=== PATIENT | male | born 1990 | race Caucasian/White ===

== ENCOUNTER 2017-12-06 13:14 | Emergency (ER) | payer OTHER ==
[2017-12-06 13:21] VITALS: PULSE 100; TEMP 97.7; BMI 38.4
--- NOTE | 2017-12-06 13:56 | PDOC ---
History of Present Illness - General Chief Complaint: Headache Stated Complaint: HIGH BP, NAUSEA Time Seen by Provider: 12/06/17 13:34 History Source: Patient Exam Limitations: No Limitations - History of Present Illness Initial Comments: 12/06/17 13:41 Patient is a 27-year-old male, morbidly obese, presents with 3 days of headache , photophobia, nausea and last night had chills. Concerned because his blood pressures been elevated, has been taking Advil without resolve of headache. Past Medical History: [Denies]. Allergies: No known allergies Medications: [None] Family History: Non-contributory Social History: Denies smoking, alcohol use, or IVDU Vital signs on arrival are [notable for pulse of 96.] Review of Systems GENERAL/CONSTITUTIONAL: Tactile fever and chills last night. No weakness. No weight change.] HEAD, EYES, EARS, NOSE AND THROAT: [No change in vision. No ear pain or discharge. No sore throat. ] CARDIOVASCULAR: [No chest pain or shortness of breath.] RESPIRATORY: [No cough, wheezing, or hemoptysis.] GASTROINTESTINAL: [No nausea, vomiting, diarrhea or constipation. No rectal bleeding.] GENITOURINARY: [No dysuria, frequency, or change in urination.] MUSCULOSKELETAL: [No joint or muscle swelling or pain. No neck or back pain.] SKIN AND BREASTS: [No rash or easy bruising.] NEUROLOGIC: [Frontal headache, no vertigo, loss of consciousness, or loss of sensation.] PSYCHIATRIC: [No depression or anxiety.] ENDOCRINE: [No increased thirst. No abnormal weight change.] HEMATOLOGIC/LYMPHATIC: [No anemia, easy bleeding, or history of blood clots.] ALLERGIC/IMMUNOLOGIC: [No hives or skin allergy. No latex allergy.] Physical Exam: GENERAL: [The patient is awake, alert, and fully oriented, in no acute distress. ] EYES: [Pupils equal, round and reactive to light, extraocular movements intact, sclera anicteric, conjunctiva clear. Positive photophobia, no nystagmus] ENT: [Ears normal, nares patent, oropharynx clear without exudates. Moist mucous membranes. No uvula deviation] NECK: [Normal range of motion, supple without lymphadenopathy, JVD, or masses.] LUNGS: [Breath sounds equal, clear to auscultation bilaterally. No wheezes, and no crackles.] HEART: [Regular rate and rhythm, normal S1 and S2 without murmur, rub or gallop. ] ABDOMEN: [Soft, nontender, normoactive bowel sounds. No guarding, no rebound. No masses. No bruising or abrasions] MUSCULOSKELETAL: [Normal range of motion, no edema. No clubbing or cyanosis. No cords, erythema, or tenderness. No CVA Tenderness with fist.] NEUROLOGICAL: [Cranial nerves II through XII grossly intact. Normal speech, normal gait.] SKIN: [Warm, Dry, normal turgor, no rashes or lesions noted.] Past History - Past Medical History Allergies/Adverse Reactions: Allergies Allergy/AdvReac Type Severity Reaction Status Date / Time Penicillins Allergy Severe Difficulty Verified 12/06/17 13:17 Breathing Home Medications: Ambulatory Orders NK [No Known Home Medication] 12/06/17 COPD: No - Immunization History Immunization Up to Date: Yes - Suicide/Smoking/Psychosocial Hx Smoking History: Never smoked *Physical Exam - Vital Signs Last Vital Signs Temp Pulse Resp BP Pulse Ox 97.7 F 100 H 18 148/91 99 12/06/17 13:17 12/06/17 13:17 12/06/17 13:17 12/06/17 13:17 12/06/17 13:17 ED Treatment Course - LABORATORY CBC & Chemistry Diagram: 12/06/17 14:03 12/06/17 14:03 Medical Decision Making - Medical Decision Making 12/06/17 14:33 A/P: Patient here for evaluation of elevated BP as long with headache, tactile fever, chills last night. I've explained to patient that he is demonstrating influenza-type illness however we are unable to test for influenza at this time I will perform a CBC and CMP head CT for headache with photophobia. Patient denies any chest pain or shortness of breath. No back pain and jaw pain arm pain. 12/06/17 15:11 Laboratory Results - last 24 hr 12/06/17 12/06/17 14:03 14:03 WBC 9.6 RBC 4.69 Hgb 14.2 Hct 41.5 MCV 88.5 MCH 30.3 MCHC 34.3 RDW 13.7 Plt Count 233 MPV 8.7 Neutrophils % 70.2 Lymphocytes % 18.5 Monocytes % 9.1 Eosinophils % 1.5 Basophils % 0.7 Sodium 140 Potassium 3.9 Chloride 107 Carbon Dioxide 23 Anion Gap 10 BUN 18 Creatinine 0.8 Creat Clearance w eGFR > 60 Random Glucose 81 Calcium 8.5 Total Bilirubin 0.7 AST 19 ALT 42 Alkaline Phosphatase 72 Total Protein 7.4 Albumin 4.0 CBC reveals no anemia, leukocytosis, bandemia, lymphocytosis, or neutrophilia. Platelets are within normal values at this time. CMP reveals no electrolyte imbalance, there is no transaminitis, renal function is normal, there is no hyperbilirubinemia. CT scan with no intracranial pathology. Pressure rechecked and within normal limits, patient reports he feels better after Zofran high suspicion for influenza-type illness. Will discharge patient, Tylenol alternate with Motrin as needed for fever, follow-up with Marc for evaluation of blood pressure. 12/06/17 19:49 *DC/Admit/Observation/Transfer Diagnosis at time of Disposition: Hypertension screen Headache Qualifiers: Headache type: unspecified Headache chronicity pattern: unspecified pattern Intractability: not intractable Qualified Code(s): R51 - Headache - Discharge Dispostion Disposition: HOME Condition at time of disposition: Stable Admit: No - Referrals Referrals: Joe Keys MD [Staff Physician] - - Patient Instructions Printed Discharge Instructions: DI for High Blood Pressure Additional Instructions: Please follow-up with and valdemar-for evaluation of hypertension. Increase fluid intake, if fever develops please medicate with Tylenol - Post Discharge Activity Forms/Work/School Notes: Back to Work
[2017-12-06] MEDS ORDERED: ONDANSETRON *ODT* 4 MG TABLET SL ONE (14:02)
[2017-12-06] MEDS ORDERED: SODIUM CHLORIDE 0.9% 500 ML INFUS.BAG IV ONE (14:02)
[2017-12-06] MEDS ORDERED: ONDANSETRON *ODT* 4 MG TABLET ONE (14:07)
[2017-12-06 14:17] LABS: BASO % 0.7 % (0-2.0); EOS % 1.5 % (0-4.5); HEMATOCRIT 41.5 % (35.4-49); HEMOGLOBIN 14.2 GM/dL (11.7-16.9); LYMPH % 18.5 % (8-40); MCH 30.3 pg (25.7-33.7); MCHC 34.3 g/dl (32.0-35.9); MEAN CELL VOLUME 88.5 fl (80-96); MEAN PLT VOLUME 8.7 fl (7.5-11.1); MONO % 9.1 % (3.8-10.2); NEUT % 70.2 % (42.8-82.8); PLATELET COUNT 233 K/MM3 (134-434); RBC 4.69 M/mm3 (4.00-5.60); RDW 13.7 % (11.9-15.9); WHITE BLOOD COUNT 9.6 K/mm3 (4.0-10.0)
[2017-12-06 14:41] LABS: ANION GAP 10 (8-16); BILIRUBIN,TOTAL 0.7 mg/dL (0.2-1.0); BLOOD UREA NITROGEN 18 mg/dL (7-18); CALCIUM 8.5 mg/dL (8.5-10.1); CHLORIDE 107 mmol/L (98-107); CO2 23 mmol/L (21-32); CREATININE 0.8 mg/dL (0.7-1.3); GLUCOSE,RANDOM 81 mg/dL (74-106); POTASSIUM 3.9 mmol/L (3.5-5.1); SGOT/AST 19 U/L (15-37); SGPT/ALT 42 U/L (12-78); SODIUM 140 mmol/L (136-145); TOT PROT 7.4 g/dl (6.4-8.2)
[2017-12-06 14:42] LABS: ALK PHOS 72 U/L (45-117)
[2017-12-06] MEDS ORDERED: ACETAMINOPHEN 500 MG TABLET (FP) PO ONE (15:12)
[2017-12-06 16:20] VITALS: BP 134/76
== END 2017-12-06 16:36 | disposition home or self-care (01) ==
LOC: JERFT 13:14
DX: I10 Essential (primary) hypertension (principal); E66.01 Morbid (severe) obesity due to excess calories; Z68.38 Body mass index [BMI] 38.0-38.9, adult
CPT/HCPCS: 36415; 70450-TC; 80053; 85025; 99281-25